=== PATIENT | female | born 1990 | race Two or more races ===

== ENCOUNTER 2018-01-09 12:48 | Outpatient (CLI) | payer OTHER | END 2018-01-09 12:52 | disposition home or self-care (01) | LOC: SONOGRAMA 12:48 | DX: N60.11 Diffuse cystic mastopathy of right breast (principal); N60.12 Diffuse cystic mastopathy of left breast ==

== ENCOUNTER 2018-01-23 09:21 | Outpatient (CLI) | payer OTHER | END 2018-01-23 09:30 | disposition home or self-care (01) | LOC: MRI 09:21 | DX: R19.01 Right upper quadrant abdominal swelling, mass and lump (principal) | CPT/HCPCS: 74181 ==

== ENCOUNTER 2018-04-02 08:56 | Outpatient (CLI) | payer OTHER | END 2018-04-02 09:03 | disposition home or self-care (01) | LOC: SONOGRAMA 08:56 | DX: R59.9 Enlarged lymph nodes, unspecified (principal) ==